=== PATIENT | female | born 1945 | race Caucasian/White ===

== ENCOUNTER 2024-02-11 16:53 | Emergency (ER) | payer MEDICARE, BC ==
[2024-02-11 17:30] LABS: BASOPHILS ABSOLUTE AUTO 0.04 K/uL (0.00-0.10); BASOPHILS PERCENT AUTO 0.6 % (0.1-1.3); EOSINOPHILS ABSOLUTE AUTO 0.09 K/uL (0.00-0.40); EOSINOPHILS PERCENT AUTO 1.4 % (0.0-5.4); HEMATOCRIT 39.7 % (34.3-46.0); HEMOGLOBIN 14.4 g/dL (11.2-15.5); IMMATURE GRAN PERCENT AUTO 0.3 % (0.0-0.7); MEAN CORPUSCULAR HEMOGLOBIN 33.7 pg (31.6-35.5); MEAN CORPUSCULAR HGB CONC 36.3 g/dL (31.6-35.5); MONOCYTES ABSOLUTE AUTO 0.52 K/uL (0.20-0.90); MONOCYTES PERCENT AUTO 8.1 % (3.3-12.6); NEUTROPHILS ABSOLUTE AUTO 4.12 K/uL (1.0-7.6); NEUTROPHILS PERCENT AUTO 64.6 % (40.0-78.1); PLATELET COUNT,PLT 141 K/uL (130-375); RED BLOOD CELL COUNT 4.27 M/uL (3.77-5.24); WHITE BLOOD CELL COUNT,WBC 6.4 K/uL (3.2-11.0)
[2024-02-11 17:34] LABS: IMMATURE GRAN ABSOLUTE AUTO 0.02 K/uL (0.00-0.23)
[2024-02-11] MEDS: Aspirin 81 MG Tab.Chew PO ONE (17:42)
[2024-02-11] MEDS: Sodium Chloride 0.9% 10 ML Syringe FLUSH PRN (17:44)
[2024-02-11] MEDS: Nitroglycerin 0.4 MG Tab.SL SL PRN (17:44)
[2024-02-11 17:53] LABS: A/G RATIO 1.1 (1.2-2.2); ALANINE AMINOTRANSFERASE,ALT 27 U/L (12-78); ALBUMIN 3.6 g/dL (3.4-5.0); ALKALINE PHOSPHATASE 72 U/L (46-116); ANION GAP 6.8 mmol/L (5.0-14.0); ASPARTATE AMNIOTRANSFERASE,AST 19 U/L (15-37); BILIRUBIN TOTAL 0.7 mg/dL (0.2-1.0); BLOOD UREA NITROGEN,BUN 17 mg/dL (7-18); CARBON DIOXIDE,CO2 29 mmol/L (21-32); CHLORIDE,CL 106 mmol/L (100-108); CREATININE 0.8 mg/dL (0.6-1.0); EST CRCL DRUG DOSING (CG) 54.25 mL/min; ESTIMATED GFR 75 mL/min (>60); GLUCOSE RANDOM 102 mg/dL (74-106); POTASSIUM,K 4.6 mmol/L (3.6-5.2); PROTEIN TOTAL,TP 6.8 g/dL (6.4-8.2); SODIUM,NA 142 mmol/L (140-148); TROPONIN I HIGH SENSITIVITY 6.9 pg/mL (<=60.3)
[2024-02-11 18:01] LABS: APPEARANCE,URINE SLIGHTLY CLOUDY (CLEAR); BILIRUBIN,URINE NEGATIVE (NEGATIVE); COLOR,URINE YELLOW (YELLOW); GLUCOSE,URINE NEGATIVE (NEGATIVE); KETONES,URINE NEGATIVE (NEGATIVE); LEUKOCYTE ESTERASE,URINE TRACE (NEGATIVE); NITRITE,URINE NEGATIVE (NEGATIVE); OCCULT BLOOD,URINE TRACE-INTACT (NEGATIVE); PROTEIN,URINE NEGATIVE (NEGATIVE)
[2024-02-11 18:07] LABS: EPITHELIAL CELLS,URINE RARE; RBC,URINE 0-5 (0-5)
[2024-02-11 18:08] LABS: AMORPHOUS SEDIMENT,URINE NOT SEEN; BACTERIA,URINE MODERATE; MUCUS,URINE NOT SEEN
[2024-02-11] MEDS: Morphine 4 MG/ML Syringe IVPUSH PRN (18:09)
[2024-02-11] MEDS: Sodium Chloride 0.9% 100 ML IV SCH (19:10)
[2024-02-11] MEDS: Iopamidol 755 Mg/ML 100 ML Bottle IV SCH (19:11)
== END 2024-02-11 20:00 | disposition home or self-care (01) ==
LOC: JP.ED 16:53
DX: R07.89 Other chest pain (principal); N39.0 Urinary tract infection, site not specified; I10 Essential (primary) hypertension; Z79.51 Long term (current) use of inhaled steroids; Z79.899 Other long term (current) drug therapy; Z87.891 Personal history of nicotine dependence
CPT/HCPCS: 36415; 71045; 71275; 80053; 81001; 84484; 85025; 93005; 96374; 99285; A9270; J2270; J3490; Q9967; 93010; 99284